=== PATIENT | female | born 1970 | race Caucasian/White ===

== ENCOUNTER 2024-11-02 14:32 | Emergency (ER) | payer OTHER ==
[~2024-11-02] VITALS: Ht 162.6 cm; Wt 57.0 kg
[2024-11-02 14:38] VITALS: O2SAT 100
[2024-11-02] MEDS ORDERED: DIPHENHYDRAMINE 50MG CAPSULE PO ONE (16:00)
[2024-11-02] MEDS: DEXAMETHASONE 10 MG/ML VIAL PO ONE (16:39)
[2024-11-02] MEDS: KETOROLAC 15MG/ML VIAL IM ONE (16:39)
[2024-11-02] MEDS: SUMATRIPTAN SUCCINATE 6MG/0.5ML VIAL SUBCUT ONE (16:39)
[2024-11-02] MEDS: PROCHLORPERAZINE MALEATE 10MG TABLET PO ONE (16:40)
[2024-11-02] MEDS: DIPHENHYDRAMINE 12.5MG/5ML UDC PO SCH (16:40)
[2024-11-02] MEDS ORDERED: SUMA11AE2 BOTHNSTRLS (18:26)
[2024-11-02] MEDS ORDERED: KETO10TA2 MT (18:26)
[2024-11-02] MEDS ORDERED: SUMA100T16 MT (18:26)
[2024-11-02 18:57] VITALS: BP 132/89; PULSE 78; RESP 16; TEMP 36.4; O2SAT 100
== END 2024-11-02 19:08 | disposition home or self-care (01) ==
LOC: ER 14:32
DX: G43.909 Migraine, unspecified, not intractable, without status migrainosus (principal)
CPT/HCPCS: 99285; 70450; 96372; J1885; Q0164; Q0163; J1100; J3030